=== PATIENT | female | born 1965 | race Caucasian/White ===

== ENCOUNTER 2019-08-09 08:00 | Outpatient (CLI) | payer BC | END 2019-08-09 23:59 | disposition home or self-care (01) | LOC: EDBD 08:00 → D.MAMMO 08:00 | PROVIDERS: ATTEND Emergency Medicine | DX: Z12.31 Encounter for screening mammogram for malignant neoplasm of breast (principal) ==

== ENCOUNTER → 2020-08-03 08:36 | Outpatient (CLI) | payer OTHER ==
--- NOTE | ~2020-08-03 | EC ---
PATIENT:ALEX ALMENDAREZ DATE OF SERVICE: 08/03/20 SEX: F MEDICAL RECORD: [id number] DATE OF : [birth year] LOCATION:[facility]FORM[facility]LY [facility] AGE OF PATIENT: 49 ADMISSION DATE: 08/03/20 REFERRING PHYSICIAN: INTERPRETING PHYSICIAN: REMY PANG MD ECHOCARDIOGRAM REPORT ECHO CHARGES 4 ECHO COMPLETE Date: 08/03/20 CLINICAL DIAGNOSIS: ANGINA ECHOCARDIOGRAPHIC MEASUREMENTS (adult normal given) AC root (d.<3.7cm) 3.5 cm LV Septum d (<1.2 cm> 1.0 cm Valve Excursion 1.5 cm LV Septum (systole) 1.3 cm Left Atria (s.<4.0cm> 3.2 cm LVPW d(<1.2cm) 1.1 cm RV (d.<2.3cm) 3.1 cm LVPW (sytole) 1.4 cm LV diastole(<5.6CM) 5.0 cm MV E-F(>70mm/sec) cm LV systole 3.4 cm LVOT Diameter 2.0 cm MV exc.(>10mm) 1.7 cm Est.ejection fraction (50-75%) % DOPPLER: LVIT cm/sec A 77.0 cm/sec E 65.0 cm/sec LA cm/sec RVSP 26 mmHg LVOT 95 cm/sec AOP1/2T m/s Asc. Ao 105 cm/sec RVOT 84 cm/sec RA cm/sec PA 100 cm/sec AV Gradient Peak 4.37 mmHg AV Mean 2.23 mmHg AV Area 3.3 cm MV Gradient Peak 3.84 mmHg MV Mean 1.85 mmHg MV Area cm COMMENTS: Carton Filler: 2 [place] Packages Tester: 3 Dr. Guerra TAPE# PACS Pericardial Effusion N DATE OF SERVICE: Adequate 2D, color flow imaging, spectral Doppler, and M-mode. No LVH. LV internal dimension is normal. Wall motion is normal. EF is greater than or equal to 55%. Aortic valve is tricuspid. No evidence of stenosis by Doppler interrogation. There is trivial AI by color flow imaging. Left atrium is normal. Mitral valve shows no prolapse. Trivial MR. Right-sided chambers are grossly normal. Trivial TR. ECHOCARDIOGRAM REPORT [id number] ALEX ALMENDAREZ NTS:[id number] Voice Confirmation ID: [id number] DOCUMENT ID: [id number] REMY PANG MD CC: [id number] DICTATION DATE: 08/06/20 1107 MARKETING SEGMENT MANAGER: 08/06/202005 DEP CLI 08/03/20 [place] [id number]
== END | disposition home or self-care (01) ==
LOC: D.HCCECHO 08:36
PROVIDERS: ATTEND Internal Medicine Cardiovascular Disease
DX: I20.9 Angina pectoris, unspecified (principal)

== ENCOUNTER 2020-08-09 11:26 | Day surgery (SDC) | payer OTHER ==
[~2020-08-09] VITALS: Ht 162.6 cm; Wt 79.7 kg
--- NOTE | ~2020-08-09 | HEMODYNAMI ---
PATIENT:ALEX ALMENDAREZ MEDICAL RECORD: [id number] : [birth year] LOCATION:DF[facility]CAT ADMISSION DATE: 08/09/20 Generatedon:08/09/202013:24 Patient name: ALEX ALMENDAREZ Patient #: [id number] SSN: [id number] : 06/07/1971 Date of study: 08/09/2020 Page: Of Hemodynamic Procedure Report Patient Data Patient Demographics Procedure consent was obtained First Name: ALEX Gender: Female Last Name: TANESHA : 06/07/1971 Middle Initial: YURIDIA Age: 49 year(s) Patient #: [id number] Race: SSN: [id number] Additional ID: [id number] Contact details Address: [address] [place] [address] State: [place] City: [facility] Zip code: [address] Past Medical History Performed procedures and imaging results Date Procedure Procedure Results Comments Stress testing Positive->Intermediate with SPECT MPI risk Allergies Allergen Reaction Date Comments Reported Other 08/09/2020 CELEXA,CODEINE,DILAUDID, allergy MORPHINE, TOPAMAX Admission Admission Data Admission Date: 08/09/2020 Admission Time: 11:26 Arrival Date: 08/09/2020 Arrival Time: 0:00 Admit Source: Other Insurance Payor: Private health insurance [facility] #: [id number] Height (in.): 65.18 BSA: 1.88 (m2) Height (cm.): 165.56 BMI: 29.08 (kg/m2) Weight (lbs.): 175.75 Weight (kg.): 79.72 Lab Results Lab Result Date: 08/09/2020 Lab Result Time: 0:00 Biochemistry Name Units Result Min Max BUN mg/dl 12 --(-*--)-- 7 18 Creatinine mg/dl 0.9 --(-*--)-- 0.6 1.3 eGFR ml/min 70.54238 *-(----)-- 90 120 NONAFRICAN CBC Name Units Result Min Max Hematocrit % 42.8 --(*---)-- 42 54 Hemoglobin g/dl 14.1 --(*---)-- 13.5 17.5 Procedure Procedure Types Cath Procedure Diagnostic Procedure [facility] w/Coronaries Sedation Charges Moderate Sedation up to 15 minutes Procedure Description Procedure Date Procedure Date: 08/09/2020 Procedure Start Time: 13:11 Procedure End Time: 13:21 Procedure Staff Name Function Forrest Alaniz MD Performing Physician Peter Melara RN Nurse Starla Galeana RT Scrub Najma Morales RT Monitor Procedure Data Cath Procedure Fluoroscopy Diagnostic fluoroscopy Total fluoroscopy Time: 1.1 time: 1.1 min min Contrast Material Contrast Material Type Amount (ml) Isovue 370 45 Entry Location Entry Primary Successful Side Size Upsize Upsize Entry Closure Succes sful Closure Location (Fr) 1 (Fr) 2 (Fr) Remarks Device Remarks Femoral Right 5 Fr Exoseal artery Estimated blood loss: 5 ml Diagnostic catheters Device Type Used For End Catheter Placement MULTIPACK JL 4.0 5Fr Procedure catheter MULTIPACK 3DRC 5Fr Procedure catheter MULTIPACK Pigtail 5 Fr Procedure catheter Procedure Complications No complications Procedure Medications Medication Administration Route Dosage Zofran I.V. 4 mg Versed I.V. 2 mg Fentanyl I.V. 50 mcg Versed I.V. 1 mg Fentanyl I.V. 50 mcg Oxygen etCO2 Nasal cannula 2 l/min Lidocaine 2% added to field 20 Heparin Flush Bag added to field 2 bags (1000units/500ml NS) 0.9% NaCl I.V. 100 ml/hr Versed I.V. 1 mg Hemodynamics Rest BSA: 1.88 (m2) HGB: 14.1 (g/dl) O2 Consumption: Estimated: 182.57 (ml/min) O2 Co nsumption indexed: Estimated:97.11 (ml/min/m) Heart Rate: 69 (bpm) Pressure Samples Time Site Value (mmHg) Purpose Heart Use Rate(bpm) 13:16 LV 78/11,5 Snapshot 73 13:17 AO 133/65(92) Pullback 75 13:17 LV 122/9,14 Pullback 75 Gradients Valve Time Site 1 Site 2 Mean SEP/DFP Peak To Heart Use (mmHg) (sec/min) Peak Rate (mmHg) (bpm) Aortic 13:17 LV AO 0 7 0 75 122/9,14 133/65(92) Calculations Valve P-P Mean Valve Index Valve Source Name Gradient Area Flow (cm2) Aortic 0 0 0 0 Snapshots Pre Cath Intra NCS Post Cath Vital Signs Time Heart Resp SPO2 etCO2 NIBP (mmHg) Rhythm Pain Sedation Rate (ipm) (%) (mmHg) Status Level (bpm) 13:02:50 68 11 97 0 130/76(102) NSR 0 (11) 10(A) , No pain 13:07:04 77 13 98 36.7 117/76(94) NSR 0 (11) 10(A) , No pain 13:11:14 72 26 97 42.7 114/75(89) NSR 0 (11) 10(A) , No pain 13:15:22 73 11 96 44.9 125/79(95) NSR 0 (11) 9(A) , No pain 13:19:36 72 14 97 46.4 110/61(78) NSR 0 (11) 9(A) , No pain 13:20:58 73 12 97 36.7 111/73(95) NSR 0 (11) 10(A) , No pain Medications Time Medication Route Dose Verified Delivered Reason Notes Eff ectiveness by by 13:01:01 Oxygen etCO2 2 Forrest Peter used for Nasal l/min [facility] Moody Melara registered public surveyor cannula 13:01:09 Lidocaine 2% added 20ml Forrest Clayton for local to vial [facility] anesthetic field MD LYMAN 13:01:15 Heparin Flush added 2 Forrest Forrest used for Bag to bags [facility] procedure (1000units/500ml field MD LYMAN NS) 13:01:24 0.9% NaCl I.V. 100 Forrest Green Per ml/hr [facility] Moody Melara RN physician 13:02:26 Zofran I.V. 4 mg Forrest [address]ie Per [facility] Moody Melara RN physician 13:06:22 Versed I.V. 2 mg Forrest Jen[address]ie for [facility] Moody Melara RN sedation 13:06:27 Fentanyl I.V. 50 Forrest Jeniie for mcg [facility] Moody Melara RN sedation 13:10:34 Versed I.V. 1 mg Forrest Ngoie for [facility] Moody Melara RN sedation 13:10:38 Fentanyl I.V. 50 Forrest Ngoie for mcg [facility] Moody Melara RN sedation 13:14:17 Versed I.V. [address] [facility] Moody Melara RN sedation Procedure Log Time Note 12:10:47 Informed consent obtained and on chart 12:14:04 Arrival Date: 08/09/2020 12:00:00 AM 12:14:06 Admit Source: Other 12:14:10 Patient Height : 65.18 inches 12:14:14 Patient Weight : 175.75 lbs 12:20:27 Insurance Payor : Private health insurance 12:23:29 ACC Patient presents with Stable Angina CCS Anginal Class 2--Slight limitation of ordinary activity. 12:23:32 Procedure Status Elective Heart Cath (OP). 12:23:34 Time tracking: Regular hours (M-F 7:00 - 5:00) 12:23:38 Plan of Care:Hemodynamics will remain stable., Cardiac rhythm will remain stable., Comfort level will be maintained., Respiratory function will remain adequate., Patient/ family verbilizes understanding of procedure., Procedure tolerated without complication., Recovers from procedure without complications.. 12:23:51 H&P Date Dictated: 07/23/2020 Within 30 days and on chart.. 12:23:52 Pre-procedure instructions explained to patient. 12:23:53 Pre-op teaching completed and patient verbalized understanding. 12:23:55 Family unavailable. 12:23:57 Patient NPO since Midnight. 12:24:08 Stress Test: yes; abnormal ANTERIOR AND APICAL 12:24:11 Alarms reviewed by R. N. 12:24:12 Sharps counted by scrub and verified by R.N. 12:24:14 Lab results completed and on chart. 12:25:00 Patient allergic to Other allergyCELEXA,CODEINE,DILAUDID, MORPHINE, TOPAMAX 12:51:43 Lab Result : Hemoglobin 14.1 g/dl 12:51:43 Lab Result : eGFR NONAFRICAN 70.50097 ml/min 12:51:43 Lab Result : BUN 12 mg/dl 12:51:43 Lab Result : Creatinine 0.9 mg/dl 12:51:43 Lab Result : Hematocrit 42.8 % 12:51:55 Starla Galeana RT(R) sent for patient. Start room use. 12:56:55 Patient received from Pre/Post Procedure Room to CCL 1 Alert and oriented. Tansferred to table in Supine position. 12:57:12 Warm blankets applied, and sujatha hugger turned on for patient comfort. 12:57:13 Correct patient and procedure confirmed by team. 12:57:13 ECG and BP/O2 sat monitors applied to patient. 12:57:19 Is the patient allergic to Iodine/contrast media? No. 12:57:21 Was the patient premedicated? No 12:57:24 Is patient on blood thinner?No 12:58:02 Patient diabetic? No. 12:58:04 If diabetic: On Metformin? N/A 12:58:06 Patient not . Patient has had hysterectomy. 12:58:08 ----Pre-sedation anethsthesia assessment.---- 12:58:12 Previous problem with sedation/anesthesia? Yes nausea 12:58:37 Snore? No 12:58:39 Sleep apnea? No 12:58:40 Deviated septum? No 12:58:41 Opens mouth fully? Yes 12:58:42 Sticks out tongue? Yes 12:58:44 Airway obstruction? No ? 12:58:48 Dentures? No ? 12:58:51 Pre procedure: right dorsailis pedis pulse 2+ Normal; easily identifiable; not easily obliterated 12:58:55 Patient pain scale 0/10 ?. 12:59:09 IV patent on arrival in left forearm with 0.9% NaCl at O. 12:59:18 Full Disclosure recording started 12:59:59 Modified Gustavo's test Ulnar > 7 seconds. 13:00:05 Left abdomen area was prepped with chlora-prep and draped in sterile fashion 13:00:09 Right groin area was prepped with chlora-prep and draped in sterile fashion 13:00:52 Use device set Femoral Dx 13:00:54 ACIST Syringe (71705) opened to sterile field. 13:00:54 Bag Decanter (2002S) opened to sterile field. 13:00:55 Medline Cath Pack ([id number]) opened to sterile field. 13:00:56 ACIST Hand Control (26055) opened to sterile field. 13:00:56 ACIST Manifold (57930) opened to sterile field. 13:00:57 DIAGNOSTIC Multipack 5Fr catheter set ([id number]) opened to sterile field. 13:00:58 SHEATH 5FR Compton (QMQ023) opened to sterile field. 13:00:58 EMERALD Guide Wire (453-800) opened to sterile field. 13:01:01 Oxygen 2 l/min etCO2 Nasal cannula was administered by Peter Melara RN; used for procedure; Verbal order read back and verified. 13:01:09 Lidocaine 2% 20ml vial added to field was administered by Forrest Alaniz MD; for local anesthetic; Verbal order read back and verified. 13:01:15 Heparin Flush Bag (1000units/500ml NS) 2 bags added to field was administered by Forrest Alaniz MD; used for procedure; Verbal order read back and verified. 13:01:24 0.9% NaCl 100 ml/hr I.V. was administered by Peter Melara RN; Per physician; Verbal order read back and verified. 13:01:47 Vital chart was started 13:01:52 Rhythm: sinus rhythm 13:01:55 Baseline sample Acquired. 13:02:26 Zofran 4 mg I.V. was administered by Peter Melara RN; Per physician; Verbal order read back and verified. 13:05:56 --------ALL STOP TIME OUT------ 13:05:57 Final Timeout: patient, procedure, and site verified with staff and physician. All members of the team are in agreement. 13:05:58 Right groin site verified by team. 13:06:01 Fire Safety Assessment: A--An alcohol-based skin anteseptic being used preoperatively., C--Open oxygen or nitrous oxide is being used., D--An ESU, laser, or fiber-optic light is being used. 13:06:05 Physical assessment completed. ASA score P 2 - A patient with mild systemic disease as per Forrest Alaniz MD. 13:06:09 2) 60-89 Mildly reduced kidney function, and other findings (as for stage 1) point to kidney disease. 13:06:13 Maximum allowable contrast dose (3.7 X eGFR X 0.75)194 ml. 13:06:19 Sedation plan: IV Moderate Sedation Medication:Versed, Fentanyl 13:06:22 Versed 2 mg I.V. was administered by Peter Melara RN; for sedation; Verbal order read back and verified. 13:06:27 Fentanyl 50 mcg I.V. was administered by Peter Melara RN; for sedation; Verbal order read back and verified. 13:10:34 Versed 1 mg I.V. was administered by Peter Melara RN; for sedation; Verbal order read back and verified. 13:10:38 Fentanyl 50 mcg I.V. was administered by Peter Melara RN; for sedation; Verbal order read back and verified. 13:11:07 Procedure started. 13:11:11 Local anesthetic to right femoral artery with Lidocaine 2% by Forrest Alaniz MD.INITIAL ACCESS ONLY 13:12:11 A 5 Fr sheath was inserted into the Right Femoral artery 13:12:31 A MULTIPACK JL 4.0 5Fr catheter was advanced over the wire and used for Procedure. 13:13:08 LCA angiography performed. 13:13:12 Injector settings: Ml/sec: 3, Volume: 6, 13:14:12 Catheter removed. 13:14:17 Versed 1 mg I.V. was administered by Peter Melara RN; for sedation; Verbal order read back and verified. 13:14:18 A MULTIPACK 3DRC 5Fr catheter was advanced over the wire and used for Procedure. 13:15:24 RCA angiography performed. 13:15:27 Injector settings: Ml/sec: 3, Volume: 6, 13:15:37 ACCDominant side:Co-Dominant 13:15:42 Catheter removed. 13:16:00 A MULTIPACK Pigtail 5 Fr catheter was advanced over the wire and used for Procedure. 13:16:04 LV gram done using TADEO 13:16:47 LV hemodynamics recorded. 13:16:57 EF : 55 % 13:17:36 Catheter removed. 13:17:42 EXOSEAL 5Fr (EX500) opened to sterile field. 13:17:53 Sheath removed intact; hemostasis achieved with Exoseal to the Right Femoral artery. 13:18:09 Fluoroscopy time 01.10 minutes. 13:18:12 Dose Area Product 45162 mGy/cm. 13:18:13 Procedure ended.(Physican Out) 13:18:21 Contrast amount:Isovue 370 45ml. 13:18:26 Maximum allowable dose exceeded? No. 13:18:27 Sharps counted by scrub and verified by R.N. 13:19:30 Post Procedure Pulses reassessed and unchanged 13:19:34 Post procedure: right dorsailis pedis pulse 2+ Normal; easily identifiable; not easily obliterated. 13:19:40 Post-procedure physical assessment completed. ASA score P 2 - A patient with mild systemic disease as per Forrest Alaniz MD. 13:19:44 Post procedure rhythm: unchanged. 13:19:47 Estimated blood loss: 5 ml 13:20:16 Post procedure instruction explained to patient.Patient verbalizes understanding. 13:20:16 Patient needs reinforcement of post procedure teaching. 13:20:34 Procedure type changed to Cath procedure, Diagnostic procedure, LHC, LHC w/Coronaries, Sedation Charges, Moderate Sedation up to 15 minutes 13:21:29 Procedure and supply charges have been captured, reviewed, submitted and are correct. 13:21:33 Procedure Complication : No complications 13:21:37 LHC Findings: mild to moderate CAD (<70%) 13:21:41 Operative report dictated upon procedure completion. 13:21:41 See physician's report for complete and final results. 13:21:44 Report given to Pre/Post Procedure Room. 13:21:47 Patient transfered to Pre/Post Procedure Room with Stretcher. 13:21:50 Vital chart was stopped 13:21:53 Procedure ended. 13:21:53 Full Disclosure recording stopped 13:21:58 End room use (Document Last) Device Usage Item Name Manufacture Quantity Catalog Hospital Part Current Minimal L ot# / Number Charge Number Stock Stock Serial# Code ACIST Acist 1 [id number] 900072 369193 488623 20 Syringe Medical (38379) Systems Inc Bag Microtek 1 218057 09400 555311 5 Decanter Medical Inc. () Medline Medline 1 [id number] 229201 04240 937855 5 Cath Pack ([id number]) ACIST Hand Acist 1 18254 346658 051080 934001 5 Control Medical (30563) Systems Inc ACIST Acist 1 54920 848528 564937 185936 5 Manifold Medical (19983) Systems Inc DIAGNOSTIC Cardinal 1 [id number] 499061 32055 347285 30 [facility] 5Fr catheter set (CI0547) SHEATH 5FR Terumo 1 OYP812 746819 824938 073690 5 Compton (UME846) EMERALD Cardinal 1 502-455 464138 866753 486309 5 Guide Wire [facility] (535-223) MULTIPACK Cardinal 1 034767 5 JL 4.0 5Fr Health catheter MULTIPACK Cardinal 1 906034 5 3DRC 5Fr Health catheter MULTIPACK Cardinal 1 783515 5 Pigtail 5 Health Fr catheter EXOSEAL 5Fr Cardinal 1 EX500 976099 513690 654426 10 (EX500) Health Signature Audit [place] Stage Time Signature Unsigned Intra-Procedure 08/09/2020 Najma Morales 1:22:08 PM RT(R) Intra-Procedure 08/09/2020 Peter Melara RN 1:22:34 PM Intra-Procedure 08/09/2020 Forrest Ma 1:24:50 PM Moody LYMAN [place] [address] [place] [address]
[2020-08-09] MEDS ORDERED: BYSTOLIC10 MG PO (11:40)
[2020-08-09] MEDS ORDERED: VOLTAREN75 MG PO (11:40)
[2020-08-09 11:56] VITALS: BP 142/73; Ht 162.6 cm; Wt 79.7 kg
[2020-08-09 12:04] LABS: HEMATOCRIT 42.8 % (36.0-48.0); HEMOGLOBIN 14.1 g/dL (12-16); LYMPHOCYTES 31.5 % (15-50); MCH 30.1 pg (26.0-34.0); MCHC 32.9 g/dL (31.0-37.0); MCV 91.5 fL (80.0-100.0); MEAN PLATELET VOLUME 9.7 fL (7.4-10.4); NEUTROPHILS 64.7 % (40-80); PLATELET COUNT 285 10x3/uL (130-400); RBC 4.68 10x6/uL (4.00-5.40); WBC 4.9 10x3/uL (4.8-10.8)
[2020-08-09 12:21] LABS: ANION GAP 16.2 mmol/L (8-16); CALCIUM 9.5 mg/dL (8.5-10.1); CARBON DIOXIDE 27.6 mmol/L (21.0-32.0); CHOL - HDL RATIO 8.7 ratio (2.3-4.1); CREATININE - SERUM 0.9 mg/dL (0.6-1.3); LDL-HDL RATIO 6.5 ratio (1.5-3.5); POTASSIUM - SERUM 3.8 mmol/L (3.5-5.1)
--- NOTE | 2020-08-09 13:30 | NUR ---
PT REC'D TO ROOM 3 VIA STRETCHER FROM OPERATIONS MANAGEMENT TRAINEE. SIG OTHER AT BS. HAROON GERBER. SEE INSURANCE INSTRUCTOR. ALARMS ON AND C/L IN REACH.
--- NOTE | 2020-08-09 13:45 | NUR ---
R GROIN SITE SOFT, NO S/S BLEEDING OR HEMATOMA. R LEG/FOOT WARM WITH PALP PULSES AND BRISK CAP REFILL. VSS. ALARMS ON AND C/L IN REACH.
--- NOTE | 2020-08-09 14:15 | NUR ---
R GROIN SITE SOFT, C/D/I, NO S/S BLEEDING OR HEMATOMA. PULSES PALP. VSS. PT RESTING QUIETLY. ALARMS ON AND C/L IN REACH.
--- NOTE | 2020-08-09 14:40 | NUR ---
R GROIN SITE SOFT, C/D/I. PULSES PALP. PT HOB ELEVATED SLOWLY. SANDWICH TRAY AND SPRITE PROVIDED. VSS. C/L IN REACH.
--- NOTE | 2020-08-09 15:00 | NUR ---
PT ATE ALL OF SANDWICH, NO N/V. VSS. R GROIN SITE SOFT, NO S/S BLEEDING OR HEMATOMA. PULSES PALP. PT DENIES PAIN OR NEEDS.
--- NOTE | 2020-08-09 15:25 | NUR ---
R GROIN SITE SOFT, C/D/I. ALL DISCHARGE INSTRUCTIONS REVIEWED WITH PT AND SIG OTHER, BOTH VERBALIZE UNDERSTANDING. PIV D/C'D INTACT, DSG APPLIED AND PT ALLOWED UP TO GET DRESSED AND GO TO BR INDEPENDENTLY.
--- NOTE | 2020-08-09 15:40 | NUR ---
PT D/C'D VIA WC TO PRIVATE VEHICLE WITH ALL PAPERWORK AND BELONGINGS.
--- NOTE | 2020-08-10 12:15 | OP ---
PATIENT NAME: ALEX ALMENDAREZ MEDICAL RECORD: [id number] :[birth year] LOCATION:D.CAT ADMISSION DATE: SURGEON: REMY PANG MD DATE OF OPERATION: 08/09/2020 PROCEDURE: Left heart catheterization, selective coronary angiography, right femoral artery approach. CATHETERS: A 5-German sheath, 5/4 left and right Aiyana, 5/4 pig. The procedure was well tolerated. The patient was returned to the suarez. Sheath removed. ExoSeal device placed. FINDINGS: Left ventriculography in 30-degree TADEO view: Normal wall motion, normal systolic function. CORONARY ANATOMY: LEFT MAIN: Left main is free of disease. LAD: LAD is free of disease in the diagonal system. CIRCUMFLEX: Codominant system. Circumflex is free of disease. RIGHT CORONARY ARTERY: Again, codominant, free of disease. IMPRESSION: Normal left ventricular systolic function, normal coronary anatomy. TRANSINT:[id number] Voice Confirmation ID: [id number] DOCUMENT ID: [id number] REMY PANG MD at 1215 CC: [id number] DICTATION DATE: 08/09/20 1324 DIRECTOR OF USER EXPERIENCE: 08/09/20 1537 [facility] [place] 08/09/20 [place] [id number] [place] [address]
== END 2020-08-09 15:40 | disposition home or self-care (01) ==
LOC: D.CATH 11:26
PROVIDERS: ATTEND Internal Medicine Interventional Cardiology
DX: I20.9 Angina pectoris, unspecified (principal); R07.9 Chest pain, unspecified; R06.00 Dyspnea, unspecified; R94.31 Abnormal electrocardiogram [ECG] [EKG]